=== PATIENT | male | born 1945 | race Caucasian/White ===

== ENCOUNTER → 2025-03-27 09:32 | Outpatient (BNVA) | payer MEDICARE, SELFPAY | PROVIDERS: PCP Family Medicine; Visit Provider Orthopaedic Surgery | DX: S62.102A Fracture of unspecified carpal bone, left wrist, initial encounter for closed fracture (principal); W19.XXXA Unspecified fall, initial encounter; Z09 Encounter for follow-up examination after completed treatment for conditions other than malignant neoplasm | CPT/HCPCS: 73110; 99204 ==

== ENCOUNTER 2025-03-28 10:09 | Day surgery (SDC) | payer MEDICARE, SELFPAY ==
[2025-03-28] VITALS (10 sets, daily range): BP systolic 113–169; BP diastolic 68–87; PULSE 49–67; RESP 10–20; TEMP 36.1–36.5; O2SAT 94–100; BMI 23.5
--- NOTE | 2025-03-28 11:18 | ANES.PREANE2 ---
Pre-Anesthetic Assessment Height/Weight: Height 5 ft 7 in Weight 150 lb Temp Pulse Resp BP Pulse Ox O2 Del Method 97.7 F 66 18 169/77 94 Room Air 03/28/25 10:39 03/28/25 10:39 03/28/25 10:39 03/28/25 10:39 03/28/25 10:39 03/28/25 10:39 Preop Diagnosis: Left wrist fracture Operation Date: 03/28/25 12:10 Proposed Procedures p Closed Reduction and Pinning Percutaneous LEFT Wrist(Left) - Demetrius Whitehead MD Was Beta Joel taken within 24 hours: N/A Was Clonidine taken within 24 hours: N/A Last intake: Intake Last Liquid Date 03/27/25 Last Liquid Time 20:00 Last Solid Date 03/27/25 Last Solid Time 19:00 Social No alcohol and No tobacco Exam alert, oriented x 3, clear to auscultation bilaterally and regular rate & rhythm Airway Submandibular: within normal limits Cervical ROM: within normal limits Mallampati: Class III Dentition: false Comments: Comments: Dentures Anesthetic Plan ASA status: 2 Anesthesia: General and Regional (specify below) Other: No prior issues with anesthesia N.p.o. since yesterday evening Patient is a very active individual, hurt himself while running a chainsaw Denies any cardiac or pulmonary issues METs greater than 4 Plan for general anesthesia with peripheral nerve block Medications/Allergies Home Medications ?Medication ?Instructions ?Recorded ?Confirmed ?Last Taken ?Type albuterol sulfate 90 mcg/actuation 90 mcg inhalation DIRECTED 03/27/25 03/27/25 Unknown History aerosol inhaler atorvastatin 40 mg tablet 40 mg PO DAILY 03/27/25 03/27/25 03/27/25 History terazosin 5 mg capsule 5 mg PO DAILY 03/27/25 03/27/25 03/27/25 History oxycodone-acetaminophen 5 mg-325 1 tab PO Q4H PRN Pain 03/28/25 03/28/25 03/28/25 History mg tablet 5-325mg Allergies Allergy/AdvReac Type Severity Reaction Status Date / Time hydrocodone Allergy Unknown Verified 03/27/25 09:51 Current Medications Generic Name Dose Route Start Last Admin Trade Name Freq PRN Reason Stop Dose Admin Sodium Chloride 1,000 mls @ 30 mls/hr 03/28/25 10:30 03/28/25 10:53 Sodium Chloride 0.9% IV 03/29/25 10:29 30 mls/hr .Q24H SAMANTHA Administration PFSH Anesthesia Family History (Updated 03/27/25 @ 09:57 by Reny Boswell MA) Mother Breast cancer Father Stroke Social History Smoking and tobacco/nicotine status: current some day tobacco/nicotine user
--- NOTE | 2025-03-28 11:42 | ANES.PROC ---
Anesthesia Procedures Procedure/Date: 03/28/25 Nerve Block ^: Nerve Block 1: Main Anesthesia: other (100 micrograms fentanyl) Time Out Performed: Yes Consent: requested by attending/covering physician and from patient Laterality: Left Nerve block location: supraclavicular Anesthesia monitors applied: pulse oximetry, EKG, BP cuff and oxygen Nerve block position: supine Anesthetic Used: ropivicaine 0.5% Amount of anesthesia used (mL): 30 Ultrasound used to: recognize landmarks Nerve Stimulator Used?: Yes Interscalene/Femoral BLK: other needle (pjunk 4inch) Injection: neg aspiration of heme Patient Tolerated Procedure: well Complications: none Additional Comments: decadron 4mg added to block
--- NOTE | 2025-03-28 12:07 | W.PM.OPSUD ---
Surgery/Procedure H&P Update DATE OF PROCEDURE: March 28, 2025 DATE H&P PERFORMED: 03/27/25 PREOP DIAGNOSIS: Left wrist fracture PRIMARY INDICATION FOR PROCEDURE: Fractured distal left radius displaced and angulated PLANNED PROCEDURE: Operation Date: 03/28/25 12:10 Proposed Procedures p Closed Reduction and Pinning Percutaneous LEFT Wrist(Left) - Demetrius Whitehead MD
--- NOTE | 2025-03-28 13:08 | P.OP_ITS ---
Operative Report Date of procedure: March 28, 2025 Surgeon: Demetrius Whitehead MD Procedure: Preoperative diagnosis: Fracture distal left radius angulated displaced Postoperative diagnosis: Same Procedure: Closed reduction with percutaneous pinning of left distal radius fracture Surgeon: Demetrius Whitehead MD Anesthesia: General With preoperative regional block EBL: None Indications: David is a 79-year-old white male who fell approximately 2 to 3 days ago on outstretched left arm. He was seen in the outside facility and was splinted due to of the fact they identified a distal radius fracture was dorsally angulated and mildly displaced. He was then referred on to the orthopedic clinics. He was seen yesterday in clinic and it was felt after reviewing the x-rays that he needed to have further reduction of this fracture with possible pinning. All risk benefits treatment alternatives were discussed with he and his and they are agreeable to this at this time. Procedure: After obtaining the consent patient had regional block administered by anesthesia in preop holding area. Patient was then taken to the operating room placed in the op table supine position general anesthetic administered. Once good anesthesia was achieved left upper extremities prepped and draped in usual fashion. After surgical timeout gentle traction and manipulation of the wrist was done until the fracture was reduced. This confirmed under both AP and lateral fluoroscopic views. At this point 2.045 K wires were driven from the distal radial styloid going distal to proximal radial towards the ulnar aspect at 2 different angles. This was confirmed under the fluoroscopic evaluation and good fixation of the fracture. Patient then had Xeroform gauze placed around the pins and the pins were capped off with pin balls. Sterile Webril was applied to the arm. A sugar-tong splint was applied with an Veto wrap for compression. Appropriate molding and the cotton vegetable loader position was then applied to the splint. Once hardened the patient was awakened transferred to cover room in stable condition
--- NOTE | 2025-03-28 13:21 | XR_ITS ---
WS: [id number] Exam: XR wrist LT 2V [id number] Date/Time of Exam: 03/28/2025 1:21 PM Reason For Exam: OR PICS DLP: AP and lateral intraoperative C-arm images of the LEFT wrist are submitted. The images depict pin fixation involving a fracture of the radial styloid. The fracture appears to be in satisfactory position for healing.
--- NOTE | 2025-03-28 14:00 | ANE.PACU2 ---
Inpatient post-anesthesia follow up: Airway intact: Yes Vital signs: Temperature 97.0 F Pulse Rate 52 Respiratory Rate 17 Blood Pressure 115/87 Pulse Oximetry 96 Oxygen Delivery Me thod Room Air Oxygen Flow Rate 6 Fraction of Inspir ed Oxygen Hydration adequate: Yes Nausea and vomiting: No Pain level: 1 Mental status: Baseline
== END 2025-03-28 14:18 | disposition home or self-care (01) ==
PROVIDERS: PCP Family Medicine; Visit Provider Orthopaedic Surgery
PROC: (CPT 25606; principal; 2025-03-28 12:00)
DX: S52.512A Displaced fracture of left radial styloid process, initial encounter for closed fracture (principal); W29.3XXA Contact with powered garden and outdoor hand tools and machinery, initial encounter; F17.200 Nicotine dependence, unspecified, uncomplicated
CPT/HCPCS: 25606; 73100; 76000; C1713; J2704; J7030

== ENCOUNTER → 2025-04-03 14:07 | Outpatient (BNVA) | payer MEDICARE, SELFPAY | PROVIDERS: PCP Family Medicine; Visit Provider Orthopaedic Surgery | DX: S62.102A Fracture of unspecified carpal bone, left wrist, initial encounter for closed fracture (principal); X58.XXXA Exposure to other specified factors, initial encounter | CPT/HCPCS: 29075; 99024 ==

== ENCOUNTER → 2025-04-22 13:19 | Outpatient (BNVA) | payer MEDICARE, SELFPAY | PROVIDERS: PCP Family Medicine; Visit Provider Orthopaedic Surgery | DX: S62.102A Fracture of unspecified carpal bone, left wrist, initial encounter for closed fracture (principal); X58.XXXA Exposure to other specified factors, initial encounter | CPT/HCPCS: 29075; 73110; 99024 ==

== ENCOUNTER → 2025-05-19 15:02 | Outpatient (BNVA) | payer MEDICARE, SELFPAY | PROVIDERS: PCP Family Medicine; Visit Provider Orthopaedic Surgery | DX: S62.102D Fracture of unspecified carpal bone, left wrist, subsequent encounter for fracture with routine healing (principal); X58.XXXD Exposure to other specified factors, subsequent encounter; Z46.89 Encounter for fitting and adjustment of other specified devices; S62.102A Fracture of unspecified carpal bone, left wrist, initial encounter for closed fracture; X58.XXXA Exposure to other specified factors, initial encounter | CPT/HCPCS: 73110; 99024 ==

== ENCOUNTER 2025-05-19 15:53 | Outpatient (CLI) | payer MEDICARE, SELFPAY | END 2025-05-19 15:54 | disposition home or self-care (01) | LOC: SPT 15:57 | PROVIDERS: PCP Family Medicine; Visit Provider Orthopaedic Surgery | DX: Z46.89 Encounter for fitting and adjustment of other specified devices (principal); S62.102A Fracture of unspecified carpal bone, left wrist, initial encounter for closed fracture; X58.XXXA Exposure to other specified factors, initial encounter | CPT/HCPCS: L3908 ==